=== PATIENT | male | born 1970 | race American Indian/Alaskan Native ===

== ENCOUNTER 2017-04-17 06:54 | Emergency (ER) | payer MEDICAID, OTHER ==
[2017-04-17 07:04] VITALS: RESP 18; TEMP 98.8; O2SAT 99
--- NOTE | 2017-04-17 08:10 | ED PDOC ---
HPI: Psych/Substance Abuse Time Seen by Provider: 04/17/17 07:16 Chief Complaint (Nursing): Psychiatric Evaluation Chief Complaint (Provider): Psychiatric Evaluation History Per: Patient Current Symptoms Are (Timing): Still Present Associated Symptoms: Suicidal Thoughts. denies: Suicidal Plan Additional Complaint(s): Bandar Landon, a 46 year old male, who has a past medical history of hypertension, diabetes and asthma is brought in to the ED by ambulance stating he does not want to live anymore but does no have a specific plan. The patient was seen earlier at [facility] for the same problem and was discharged. Past Medical History Reviewed: Historical Data, Nursing Documentation, Vital Signs Vital Signs: Last Vital Signs Temp 98.8 F 04/17/17 06:59 Pulse 79 04/17/17 06:59 Resp 18 04/17/17 06:59 BP 146/87 04/17/17 06:59 Pulse Ox 99 04/17/17 06:59 - Medical History PMH: Asthma, Bipolar Disorder, Depression, Diabetes, HTN, Schizophrenia Denies: Hepatitis, HIV, Chronic Kidney Disease, Seizures, Sexually Transmitted Disease - Family History Family History: States: Unknown Family Hx - Immunization History Hx Tetanus Toxoid Vaccination: (UNK) Hx Influenza Vaccination: (UNK) Hx Pneumococcal Vaccination: (UNK) - Home Medications Home Medications: Ambulatory Orders Medication Instructions Recorded No Known Home Med 04/15/17 - Allergies Allergies/Adverse Reactions: Allergies Allergy/AdvReac Type Severity Reaction Status Date / Time No Known Allergies Allergy Verified 04/17/17 01:31 Review of Systems ROS Statement: Except As Marked, All Systems Reviewed And Found Negative Psych: Positive for: Suicidal ideation Physical Exam - Reviewed Nursing Documentation Reviewed: Yes Vital Signs Reviewed: Yes - Physical Exam Appears: Positive for: Non-toxic, No Acute Distress Head Exam: Positive for: ATRAUMATIC, NORMAL INSPECTION, NORMOCEPHALIC Skin: Positive for: Normal Color, Warm, Dry. Negative for: Rash Eye Exam: Positive for: Normal appearance, EOMI, PERRL. Negative for: Nystagmus Neck: Positive for: Normal, Painless ROM, Supple Cardiovascular/Chest: Positive for: Regular Rate, Rhythm, Chest Non Tender. Negative for: Tachycardia Respiratory: Positive for: Normal Breath Sounds. Negative for: Rales, Rhonchi, Wheezing, Respiratory Distress Gastrointestinal/Abdominal: Positive for: Normal Exam, Bowel Sounds, Soft. Negative for: Tenderness, Guarding, Rebound Back: Positive for: Normal Inspection. Negative for: L CVA Tenderness, R CVA Tenderness Extremity: Positive for: Normal ROM. Negative for: Tenderness, Deformity, Swelling Lymphatic: Positive for: Normal Exam. Negative for: Adenopathy Neurologic/Psych: Positive for: Alert, Oriented, Gait - ECG O2 Sat by Pulse Oximetry: 99 (RA) Pulse Ox Interpretation: Normal Medical Decision Making Medical Decision Makin Initial Impression: 46 y/o male presenting with suicidal ideations Initial Plan: * Reevaluation 729 Pending crisis evaluation Scribe Attestation Documented by María Adames acting as a scribe for Iraj Townsend MD. Provider Attestation All medical record entries made by the Scribe were at my direction and personally dictated by me. I have reviewed the chart and agree that the record accurately reflects my personal performance of the history, physical exam, medical decision making, and the department course for this patient. I have also personally directed, reviewed, and agree with the discharge instructions and disposition. Disposition - Clinical Impression Clinical Impression: Depression - Patient ED Disposition Is Patient to be Admitted: No - Disposition Referrals: [facility] [Outside] Disposition: Routine/Home Disposition Time: 09:31 Condition: FAIR Instructions: Depression (ED) Forms: [employer] (Serbian)
[2017-04-17 10:24] VITALS: BP 110/85; PULSE 78
== END 2017-04-17 10:30 | disposition home or self-care (01) ==
LOC: H.ER 06:54
DX: F32.9 Major depressive disorder, single episode, unspecified (principal)